=== PATIENT | male | born 1975 | race Caucasian/White ===

== ENCOUNTER 2017-02-16 19:15 | Emergency (ER) | payer MEDICAID ==
[~2017-02-16] VITALS: Ht 172.7 cm; Wt 79.4 kg
[~2017-02-16 19:15] MED LIST: NOMEDS XX; VICODIN 5/500 T1 TAB PO; VOLTAREN75 MG PO
--- OUTSIDE RECORDS SUMMARY | 2017-02-16 20:01 | External Medical Summary Rpt | CCD ---
Author Author Conduent Organization Conduent Address Unknown Phone Unavailable Purpose Continuity of Care Document - through 2016
--- OUTSIDE RECORDS SUMMARY | 2017-02-16 20:01 | External Medical Summary Rpt ---
Author Author JAZLYN Winkler, [employer] Organization [employer] Address Unknown Phone Unavailable
--- OUTSIDE RECORDS SUMMARY | 2017-02-16 20:01 | External Medical Summary Rpt | CCD ---
Author Author , JAZLYN Organization JAZLYN Address Unknown Phone [email or web address] Care Team Providers Care Wagon Person Name Role Phone Jessica Arroyo MD, Unavailable Unavailable Jessica Arroyo MD Purpose Continuity of Care Document - 04-15-2013 through 2016 Problems Code Diagnosis DOS Provider Status F17.210 NICOTINE 02-05-2017 DEPENDENCE, CIGARETTES, UNCOMPLICAT ED F31.9 BIPOLAR 02-05-2017 DISORDER, UNSPECIFIED S61.012D LACERATION 02-05-2017 WITHOUT FOREIGN BODY OF LEFT THUMB WITHOUT DAMAGE TO NAIL, SUBSEQUENT ENCOUNTER L08.9 LOCAL 02-05-2017 INFECTION OF THE SKIN AND SUBCUTANEOU S TISSUE, UNSPECIFIED T81.33XA DISRUPTION 02-05-2017 OF TRAUMATIC INJURY WOUND REPAIR, INITIAL ENCOUNTER S70.01XA CONTUSION 01-26-2017 OF RIGHT HIP, INITIAL ENCOUNTER S79.911A UNSPECIFIED 01-26-2017 INJURY OF RIGHT HIP, INITIAL ENCOUNTER V00.831A FALL FROM 01-26-2017 MOTORIZED MOBILITY SCOOTER, INITIAL ENCOUNTER Y92.410 UNSPECIFIED 01-26-[address] OF OCCURRENCE OF THE EXTERNAL CAUSE Z53.21 PROCEDURE 01-06-2017 AND TREATMENT NOT CARRIED OUT DUE TO PATIENT LEAVING PRIOR TO BEING SEEN BY HEALTH CARE PROVIDER 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, 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 E SUBSTANCE ABUSE WITH INTOXICATIO N, UNCOMPLICAT ED S90.412A ABRASION, 10-30-2016 LEFT GREAT TOE, INITIAL ENCOUNTER Z02.89 ENCOUNTER 10-30-2016 FOR OTHER ADMINISTRAT RICARDO EXAMINATION S Z20.2 CONTACT 09-04-2016 WITH AND (SUSPECTED) EXPOSURE TO INFECTIONS WITH A PREDOMINANT LY SEXUAL MODE OF TRANSMISSIO N 965.4 965.4 04-15-2013 Raheel POIS-AROM [facility] NEC E849.0 E849.0 04-15-2013 Raheel ACCIDENT IN [facility] E950.0 E950.0 04-15-2013 Raheel SUICIDE-RONA [facility] Allergies, Adverse Reactions, Alerts Type Drug Allergy Adverse Reaction to Substance Substance Reaction Severity Codeine Unknown Unknown Medications Na ND Rx Da Fi Fi Am Da Di Ph RX Ph St me C No te ll ll ou ys ag ar # ys at rm s nt no ma ic us Or Da si cy ia de te s n re d SO 00 01 0 No DI 40 -1 UM 97 7- Lo 98 20 ng CH 30 14 er LO 9 RI Ac DE ti ve 0. 9% SO AMY TI ON AC 00 01 0 No TI 57 -1 DO 40 7- Lo SE 12 20 ng 07 14 er 50 6 Ac GM ti ve LI QU ID AC 00 01 0 No ET 51 -1 YL 77 7- Lo CY [address] 00 14 er EI 3 NE Ac ti 20 ve % AL Sa 63 01 0 No li 80 -1 ne 70 7- Lo 10 20 ng Fl 07 14 er us 5 h Ac 10 ti ML ve Sy ri ng e Mcfadden 00 01 0 No lo 06 -1 pe 90 7- Lo ri 11 20 ng do 30 14 er l [address] ti at ve e 5M G/ Ml Vi a Vital Signs 04-15-2013 20:11 Name Value Interpretat Reference Comment ion Range BP 51 mm[Hg] Diastolic BP Systolic 140 mm[Hg] Heart 75 /min Rate/Pulse O2% 97 % Respiratory 20 /min Rate 04-15-2013 19:44 Name Value Interpretat Reference Comment ion Range Body 98.3 [degF] Temperature 04-15-2013 12:30 Name Value Interpretat Reference Comment ion Range BP 80 mm[Hg] Diastolic BP Systolic 120 mm[Hg] Heart 77 /min Rate/Pulse O2% 98 % Respiratory 20 /min Rate Results Labs Lab Lab Date Result Refere Interp Status Commen Order Detail nces retati t Range on COMPREHENSIVE METABOLIC PANEL (04-15-2013 16:45) Glucose 102 74-106 complet 014 mg/dL ed Bld-mCn 16:45 c BUN 17 7-18 complet Bld-mCn 014 mg/dL ed c 16:45 Creat 1.3 0.8-1.3 complet SerPl-m 014 mg/dL ed Cnc 16:45 Creat 78 50-200 complet Cl 014 ML/MIN ed predict 16:45 ed SerPl C-G-vRa te GFR/BSA 61 Greater complet .pred 014 ML/MIN than ed SerPl 16:45 60 Schwart z-vRate Sodium 143 136-145 complet SerPl-s 014 mmoL/L ed Cnc 16:45 Potassi 3.5 3.5-5.1 complet um 014 mmoL/L ed SerPl-s 16:45 Cnc Chlorid 105 98-107 complet e 014 mmoL/L ed SerPl-s 16:45 Cnc CO2 27 21.0-32 complet SerPl-s 014 mmoL/L .0 ed Cnc 16:45 Calcium 8.4 8.5-10. complet 014 mg/dL 1 ed SerPl-m 16:45 Cnc Prot 7.4 6.4-8.2 complet SerPl-m 014 gm/dL ed Cnc 16:45 Albumin 4.0 3.4-5.0 complet 014 gm/dL ed SerPl-m 16:45 Cnc Globuli 3.4 1.3-3.2 complet n 014 gm/dL ed Ser-mCn 16:45 c Albumin 1.2 UNK 1.1-1.8 complet /Glob 014 ed SerPl-m 16:45 Rto Bilirub 0.4 0.2-1.0 complet 014 mg/dL ed SerPl-m 16:45 Cnc AST 18 U/L 15-37 complet SerPl-c 014 ed Cnc 16:45 ALT 31 U/L 12-78 complet SerPl-c 014 ed Cnc 16:45 ALP 104 U/L 50-136 complet SerPl-c 014 ed Cnc 16:45 Acetamin SerPl-mCnc (04-15-2013 16:45) Acetami 161.7 10-30 complet n 014 ug/mL ed SerPl-m 16:45 Cnc COMPREHENSIVE METABOLIC PANEL (04-15-2013 12:20) Glucose 119 74-106 complet 014 mg/dL ed Bld-mCn 12:20 c BUN 16 7-18 complet Bld-mCn 014 mg/dL ed c 12:20 Creat 1.3 0.8-1.3 complet SerPl-m 014 mg/dL ed Cnc 12:20 Creat 78 50-200 complet Cl 014 ML/MIN ed predict 12:20 ed SerPl C-G-vRa te GFR/BSA 61 Greater complet .pred 014 ML/MIN than ed SerPl 12:20 60 Schwart z-vRate Sodium 141 136-145 complet SerPl-s 014 mmoL/L ed Cnc 12:20 Potassi 3.3 3.5-5.1 complet um 014 mmoL/L ed SerPl-s 12:20 Cnc Chlorid 103 98-107 complet e 014 mmoL/L ed SerPl-s 12:20 Cnc CO2 27 21.0-32 complet SerPl-s 014 mmoL/L .0 ed Cnc 12:20 Calcium 8.6 8.5-10. complet 014 mg/dL 1 ed SerPl-m 12:20 Cnc Prot 7.5 6.4-8.2 complet SerPl-m 014 gm/dL ed Cnc 12:20 Albumin 4.1 3.4-5.0 complet 014 gm/dL ed SerPl-m 12:20 Cnc Globuli 3.4 1.3-3.2 complet n 014 gm/dL ed Ser-mCn 12:20 c Albumin 1.2 UNK 1.1-1.8 complet /Glob 014 ed SerPl-m 12:20 Rto Bilirub 0.3 0.2-1.0 complet 014 mg/dL ed SerPl-m 12:20 Cnc AST 16 U/L 15-37 complet SerPl-c 014 ed Cnc 12:20 ALT 26 U/L 12-78 complet SerPl-c 014 ed Cnc 12:20 ALP 104 U/L 50-136 complet SerPl-c 014 ed Cnc 12:20 Ethanol Bld-mCnc (04-15-2013 12:20) Ethanol 0 mg/dL 0-99 complet 014 ed Bld-mCn 12:20 c Salicylates SerPl-mCnc (04-15-2013 12:20) Salicyl 3.2 2.8-20. complet ates 014 mg/dL 0 ed SerPl-m 12:20 Cnc Acetamin SerPl-mCnc (04-15-2013 12:20) Acetami 237.7 10-30 complet n 014 ug/mL ed SerPl-m 12:20 Cnc CBC with AUTO DIFF (04-15-2013 12:20) WBC # 10.2 4.8-10. complet Bld 014 K/MM3 8 ed Auto 12:20 RBC # 5.08 4.6-6.2 complet Bld 014 M/mm3 ed Auto 12:20 Hgb 15.6 14.1-18 complet Bld-mCn 014 g/dL .0 ed c 12:20 Hct Fr 45.6 % 42.0-52 complet Bld 014 .0 ed 12:20 MCV RBC 89.9 fl 82.2-97 complet 014 .8 ed 12:20 MCH RBC 30.8 pg 27-31.2 complet Qn 014 ed Auto 12:20 MEAN 34.2 31.8-35 complet CORPUSC 014 g/dl .4 ed ULAR 12:20 HGB CONC RDW RBC 13.8 % 11.5-17 complet Auto 014 .5 ed 12:20 Platele 235 142-424 complet t Bld 014 K/mm3 ed Ql 12:20 Manual MEAN 7.4 fl 7.4-10. complet PLATELE 014 4 ed T 12:20 VOLUME Granulo 79.4 % 37.0-80 complet cytes 014 .0 ed Fr Bld 12:20 Auto LYMPH % 14.2 % 10-50 complet 014 ed 12:20 Monocyt 04-15-2 4.9 % 1.7-9.3 complet es Fr 014 ed Bld 12:20 Auto Eosinop 04-15-2 0.8 % 0.1-12. complet hil Fr 014 0 ed Bld 12:20 Auto Basophi 04-15-2 0.7 % 0.1-2.0 complet ls Fr 014 ed Bld 12:20 Auto Granulo 04-15-2 8.1 1.3-8.0 complet cytes # 014 K/mm3 ed Bld 12:20 Auto Lymphoc 04-15-2 1.4 0.7-4.5 complet ytes Fr 014 K/mm3 ed Bld 12:20 Auto Monocyt 04-15-2 0.5 0.1-1.0 complet es # 014 K/mm3 ed Bld 12:20 Auto Eosinop 04-15-2 0.1 0.0-0.4 complet hil # 014 K/mm3 ed Bld 12:20 Auto Basophi 04-15-2 0.1 0-0.2 complet ls # 014 K/MM3 ed Bld 12:20 Auto Procedures Procedure DOS Code Location Performer Comment INSERT 57.94 Jessica Arroyo MD G CATH INSERT 96.07 Jessica GASTRIC [facility] N[facility] DIGESTIVE 87.69 Jessica TRACT [facility] NEC Encounters Encounter Start End Date Code Location Performer Type Date Emergency DWAYNE Arroyo MD (ER) 4 12:28 4 20:20 [facility]
--- OUTSIDE RECORDS SUMMARY | 2017-02-16 20:01 | External Medical Summary Rpt | CCD ---
Author Author , JAZLYN Organization JAZLYN Address Unknown Phone [email or web address] Care Team Providers Care Foxer Name Role Phone Jessica Arroyo MD, Unavailable [...] TRANSMISSIO N 965.4 965.4 04-15-2013 Raheel POIS-AROM [facility] NEC E849.0 E849.0 04-15-2013 Raheel ACCIDENT IN [facility] E950.0 E950.0 04-15-2013 Raheel SUICIDE-RONA [facility] Allergies, Adverse Reactions, Alerts Type Drug Allergy [...] Arroyo MD (ER) 4 12:28 4 20:20 [facility]
--- OUTSIDE RECORDS SUMMARY | 2017-02-16 20:01 | External Medical Summary Rpt | CCD ---
Demographics Preferred Language Czech Marital Status Unknown Synagogue Affiliation Unknown Race Unknown Ethnic Group Unknown Author Author , JAZLYN HOBSON Address Unknown Phone Immunization Unable to retrieve immunization data due to connection failure with Immunization Registry. Please try again later.
--- OUTSIDE RECORDS SUMMARY | 2017-02-16 20:01 | External Medical Summary Rpt | CCD ---
Demographics Preferred Language Kazakh Marital Status Unknown [employer]an Affiliation Unknown Race Unknown Ethnic Group Unknown Author Author , JAZLYN HOBSON Address Unknown Phone Immunization Unable to retrieve immunization data due to connection failure with Immunization Registry. Please try again later.
[2017-02-16 20:03] LABS: URINE BILIRUBIN - DIPSTICK NEGATIVE (NEG); URINE BLOOD TRACE-INTACT (NEG)
[2017-02-16 20:12] LABS: AMPHETAMINES/METAMPHETAMINES NEGATIVE ng/mL (<1000); URINE SQUAMOUS CELLS OCC #/hpf (OCC)
--- NOTE | 2017-02-16 20:15 | Emergency Room Report ---
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 N Clinical Suspician of Infection? N Mental Status: 1 - Regular (Normal Baseline) Sepsis Risk:Severe Sepsis Risk Have you (or family members/close friends) recently traveled outside the [place]? N If Yes, where/when: Have you had exposure to infectious disease within the past month? N TB? Other? Specify: Source patient, RN notes reviewed, family, EMS, old records Exam Limitations no limitations Comment snorted heroin and was nonresponsive and was revived with narcan - no other c/o at this time- has hx of bipolar Cardiac Chest Pain Chest pain indicative of cardiac No Timing/Duration this evening Severity moderate ALLERGIES Coded Allergies: codeine (Intermediate, 02/16/17) Home Medications Reported Medications Divalproex Sodium 500 MG PO BID #60 Mirtazapine (Remeron 15MG Tablet) 15 MG PO QHS #30 LURASIDONE HCL (Latuda) 40 MG PO DAILY #30 History Medical History General CAD? No Angina: No NM: No Hypertension? No Hyperlipidemia? No CHF? No DVT? No PE? No COPD? No Asthma? No Anemia? No GERD? No Gastric ulcers? No GI Bleed? No Hernia? No Thyroid Problems? No Hypothyroidism? No CVA? No Seizures? No Diabetes? No Renal Insuffiency? No End Stage Renal Disease? No UTI? No Stones? No BPH? No GB Disease: No Nephritic Syndrome? No Asplenia? No Hepatitis? No Sickle Cell Disease? No Arthritis? No Migraines? No Cataracts? No Glaucoma? No MRSA? No HIV? No TB? No Anxiety? No Depression? No Cancer? No More? No Immunization Hx DT/Tetanus 11/16/06 Flu 2YRSorMore Pneumonia NEVER Surgical Hx Previous Surgery?Y HEMORRHOIDECTOMY NASAL SURGERY X2 RT HAND LT KNEE ARTHROSCOPY Family History Family Hx Diabetes No CAD No Hypertension No Hyperlipidemia No Cancer Yes TB No Social History Smoking Hx Smoker: Current Every Day Smoker Tobacco: Yes Type Cigarettes Packs/day < 1 Pack Alcohol Alcohol: No Drugs none Review of Systems All Other Systems Reviewed and Negative Constitutional denies fever Eyes denies drainage ENT denies: ear discharge, epistaxis, throat pain. Respiratory denies cough, denies shortness of breath, denies wheezing Cardiovascular denies see HPI, denies chest pain, denies syncope Gastrointestinal denies abdominal pain, denies diarrhea, denies vomiting Genitourinary denies: dysuria, frequency, hesitancy, hematuria. Musculoskeletal denies back pain, denies joint pain, denies joint swelling, denies neck pain Skin denies rash Psychiatric/Neurological see HPI, denies headache, denies seizure, other Physical Exam Vital Signs Vital Signs Date Time Temp Pulse Resp B/P Pulse O2 O2 Flow FiO2 Ox Delivery Rate 02/17 0037 97.1 71 18 109/70 95 02/17 0020 71 18 109/70 95 02/167 76 22 118/70 98 4 02/16 2137 73 22 110/74 97 4 02/17 2116 73 22 88/58 94 4 02/16 2045 97.1 106 28 83/53 94 4 02/16 1941 95.6 106 28 94 02/16 193 95.0 112 18 112/78 95 02/16 1917 94.9 114 28 149/116 94 4 02/16 1915 94 - WBC >12,000 or <4,000 or 10% bands? 2 or more SIRS Criteria Met? B/P:109/70 MAP:127 Creatinine >2.0? UA output<0.5ml/kg/hr for 2 hrs? Platelet count >100,000? Lactate >2.0mmol/1? INR >1.2 or PTT > than 60 sec? Evidence of Organ Dysfunction? Provider documented clinical suspician of infection? N Sepsis Criteria Count: 2 Sepsis Risk: Severe Sepsis Risk General Appearance no apparent distress Eye Exam - bilateral eye PERRL, bilateral eye EOMI Ear, Nose, Throat normal ENT inspection Neck supple Respiratory Status No: respiratory distress. Lung Sounds bilateral: lungs clear. Cardiovascular regular rate/rhythm, no gallop, no JVD, no murmur, no rub Peripheral Pulses Pulses normal Yes Gastrointestinal soft Extremities normal inspection Strength 4 Upper Ext (L), 4 Upper Ext (R), 4 Lower Ext (L), 4 Lower Ext (R) Neurologic alert, lead infrastructure architect II-XII nml as tested, no motor/sensory deficits Glascow Coma Scale Glascow Coma Scale Response Value EYE response: 4 Spontaneously 4 MOTOR response: 6 OBEYS 6 VERBAL response: 5 Oriented & Converses 5 Total 15 Reflexes Reflexes normal No Mental status normal mood/affect Skin intact Medical Decision Making LABS/Meds/Orders Pt receiving controlled substance in ED? No Results/Orders Laboratory Tests 02/16/172010: Lactic Acid 4.1 H, Alcohols 0 02/16/172010: Sodium 145, Potassium 4.4, Chloride 108 H, Carbon Dioxide 26, BUN 20 H, Creatinine 1.5 H, Estimated Creat Clear 71, Estimated GFR (MDRD) 51, Glucose 225 H, Calcium 8.2 L, Total Bilirubin 0.1 L, AST 132 H, ALT 123 H, Alkaline Phosphatase 110, Creatine Kinase 110, CK-MB (CK-2) Rel Index 0.6, CK and CKMB Interp 0.7, Troponin I 0.04, Total Protein 7.0, Albumin 3.5, Globulin 3.5 H, Albumin/Globulin Ratio 1.0 L, WBC 13.6 H, RBC 4.55 L, Hgb 14.0 L, Hct 43.2, MCV 94.9, RDW 12.6, Plt Count 200, MPV 7.9, Gran % 91.8 H, Gran # 12.4 H, Total Counted 100, Lymphocytes % 4.6 L, Monocytes % 2.5, Eosinophils % 0.7, Basophils % 0.3, Neutrophils 91 H, Band Neutrophils 3, Lymphocytes (Manual) 5 L, Lymphocytes # 0.6 L, Monocytes (Manual) 1 L, Monocytes # 0.3, Eosinophils # 0.1, Basophils # 0.0, RBC/WBC/PLT Morphology NORMAL, Platelet Estimate NORMAL, PUBS MCHC 32.1, MCH 30.5, Salicylates 3.0, Acetaminophen 0 L 02/16/171948: Opiates Screen NEGATIVE, Urine Methadone Screen NEGATIVE, Barbiturates NEGATIVE, Phencyclidine Screen NEGATIVE, Amphetamines Screen NEGATIVE, Benzodiazepines Screen NEGATIVE, Cocaine Screen NEGATIVE, Marijuana (THC) Screen NEGATIVE, Urine Color YELLOW, Urine Appearance CLEAR, Urine pH 6.0, Ur Specific [place] 1.020, Urine Protein 2+ H, Urine Ketones NEGATIVE, Urine Blood TRACE-INTACT, Urine Nitrate NEGATIVE, Urine Bilirubin NEGATIVE, Urine Urobilinogen 0.2, Ur Leukocyte Esterase NEGATIVE, Urine RBC 10-20, Urine WBC OCC, Ur Squamous Epith Cells OCC, Urine Bacteria TRACE, Hyaline Casts OCC, Urine Glucose 2+ H Current Medication Orders Sig/Casi Start time Last Medication Dose Route Stop Time Status Admin Sodium Chloride 1,000 ML .Q1H1M 02/16 2100 DC 02/16 IV 02/16 Sodium Chloride 10 ML PRN PRN 02/16 2100 AC IV 02/17 2047 Sodium Chloride 10 ML PRN PRN 02/16 1930 AC IV 02/17 1925 Sodium Chloride 1,000 ML .Q1H1M 02/16 193 DC 02/16 IV 02/16 Sodium Chloride 10 ML PRN PRN 02/16 1930 AC IV 02/17 1926 Orders Procedure Date/time Status DIET-NOTHING BY MOUTH 02/17 B Active LACTIC ACID FOLLOW UP 02/[address] HEAD W/O CONTRAST 02/[address] SCAN REQ 02/16 2017 Complete ALCOHOL 02/17 2016 Complete DIFFERENTIAL-WBC 02/16 2011 Complete OXYGEN PER NURSE 02/16 1929 Active ELECTROCARDIOGRAM REQUEST 02/16 1927 Active CHEST-AP VIEW ONLY 02/16 1927 Active IV SALINE LOCK 02/16 1927 Active CULTURE, BLOOD 02/16 1927 Active URINALYSIS/COMPLETE 02/16 1927 Complete SALICYLATE 02/16 1927 Complete LACTIC ACID 02/16 1927 Complete DRUG ABUSE SCREEN (TRIAGE) 02/16 1927 Complete CBC WITH AUTO DIFF 02/16 1927 Complete CARDIAC ENZYMES 02/16 1927 Complete CHEM 12 PROFILE 02/16 1927 Complete Acetaminophen 02/16 1927 Complete CM/EKG CM/EKG 1 Monitor Rhythm Atrial Fibrillation EKG non-spec. ST/[facility] chgs CM/EKG 2 Monitor Rhythm Normal Sinus Rhythm EKG non-spec. ST/[facility] ch[facility] XRAY/CT/US XRAY/CT/US 1 XRAY chest XR interpretation by reviewed by me Xray Results normal/NAD XRAY/CT/US [address] interpretation by discussed w/radiologist Time results known: 0026 CT Results normal/NAD Progress ED Progress Notes Date 02/17/17 Time 0036 Comment at baseline Departure Departure Time of Disposition 0025 Disposition DC Home or Self Care(routine) Clinical Impression Primary Impression: Accidental heroin overdose Qualifiers: Encounter type: initial encounter Qualified Code: T40.1X1A - Poisoning by heroin, accidental (unintentional), initial encounter Condition STABLE Patient Instructions DI for Drug Abuse and Drug Addiction Additional Instructions call pcp for follow up Discharge Counseling Counseled pt/family regarding diagnosis, test results, medications/RX, follow up needs Prescriptions Current Visit Scripts Divalproex Sodium (Depakote) 500 MG PO BID #60 TAB Mirtazapine (Remeron) 15 MG PO QHS #30 TAB LURASIDONE HCL (Latuda) 40 MG PO DAILY #30 TAB ED Critical Care Critical Care No at 0040
[2017-02-16 20:29] LABS: LYMPH # 0.6 K/mm3 (0.7-4.5); LYMPH % 4.6 % (10-50)
[2017-02-16 21:10] LABS: NEUTROPHILS 91 % (42-76)
[2017-02-17] MEDS ORDERED: DIVALPROEX SOD500 M2 PO (00:26)
[2017-02-17] MEDS ORDERED: REMERON 15MG TA15 MG PO (00:27)
[2017-02-17] MEDS ORDERED: LATUDA40 MG PO ×2 (00:27→00:39)
[2017-02-17 00:37] VITALS: BP 109/70
[2017-02-17] MEDS ORDERED: REMERON15 MG PO (00:39)
[2017-02-17] MEDS ORDERED: DEPAKOTE 500MG500 MG PO (00:39)
--- NOTE | 2017-02-17 04:47 | RADIOLOGY REPORT PS360 ---
CHEST-AP VIEW ONLY HISTORY: Shortness of air DRUG OVERDOSE, CPR ORDERING PHYSICIAN: Eloisa Armstrong MD PATIENT AGE: 41 years COMPARISON: None available FINDINGS: There are low lung volumes. The study is also in a lordotic position. Unremarkable cardiovascular structures. Patchy density is noted in the right midlung probably due to summation artifact. Consider upright PA and lateral chest on patient tolerated as patchy infiltrate or atelectasis is also considered. No evidence of pneumothorax or pleural effusion. No acute bony anomalies. IMPRESSION: Right midlung atelectasis or infiltrate versus summation density.
--- NOTE | 2017-02-17 05:15 | RADIOLOGY REPORT PS360 ---
CT HEAD W/O CONTRAST HISTORY: Altered mental status, altered level consciousness, confusion/memory loss/disorientation FALL ORDERING PHYSICIAN: Eloisa Armstrong MD PATIENT AGE: 41 years COMPARISON: None TECHNIQUE: Axial images obtained without contrast. Brain and bone windows reviewed. FINDINGS: No midline shift, mass effect, intracranial hemorrhage, hydrocephalus, or extra-axial fluid collection is evident. The calvarium has an unremarkable appearance. No mastoid effusion. Air-fluid levels present in the sphenoid sinus and right maxillary sinus.. IMPRESSION: 1. No acute intracranial findings. 2. Sinusitis.
== END 2017-02-17 00:45 | disposition home or self-care (01) ==
LOC: ER 19:15
PROVIDERS: Emergency Medicine
DX: T40.1X1A Poisoning by heroin, accidental (unintentional), initial encounter (principal); Z88.6 Allergy status to analgesic agent; F17.210 Nicotine dependence, cigarettes, uncomplicated